=== PATIENT | male | born 2000 | race Caucasian/White ===

== ENCOUNTER 2023-03-25 17:09 | Emergency (ER) | payer SELFPAY ==
[~2023-03-25] VITALS: Ht 172.7 cm; Wt 80.0 kg
[2023-03-25 17:15] VITALS: BP 128/69
[2023-03-25] MEDS ORDERED: CEFAZOLIN 1000MG PREMIX 50 ML IV ONE (17:30)
[2023-03-25] MEDS ORDERED: TETANUS, DIPHTHERIA, PERTUSSIS VAC/PF 0.5ML (>10YR OLD) IM ONE (17:30)
[2023-03-25] MEDS ORDERED: BACITRACIN ZINC OINT UDPKT TOP ONE (17:30)
[2023-03-25] MEDS ORDERED: FENTANYL CITRATE/PF 50MCG/ML 2ML VIAL IV ONE (17:30)
[2023-03-25] MEDS ORDERED: LIDOCAINE HCL 1% 20ML VIAL (Pyxis) INJ INFIL ONE (17:30)
[2023-03-25] MEDS ORDERED: SODIUM CHLORIDE 0.9% 1,000 ML IV ONE (17:30)
[2023-03-25 18:02] LABS: PARTIAL THROMBOPLASTIN TIME 26.2 sec (23.4-31.0)
[2023-03-25 18:03] LABS: CHLORIDE 109 mEq/L (98-107)
[2023-03-25 18:11] LABS: CREATINE KINASE 263 IU/L (39-308)
== END 2023-03-25 18:08 | disposition left against medical advice (07) ==
LOC: ER 17:09
DX: S31.823A Puncture wound without foreign body of left buttock, initial encounter (principal); G89.11 Acute pain due to trauma; W34.09XA Accidental discharge from other specified firearms, initial encounter; Y93.89 Activity, other specified; Y92.89 Other specified places as the place of occurrence of the external cause; Y99.8 Other external cause status
CPT/HCPCS: 36415; 71045; 72170; 80053; 82550; 85610; 85730; 86850; 86900; 86901; 99291; J3010; J7030; Z7610; J0690